=== PATIENT | male | born 1985 | race African-American/Black ===

== ENCOUNTER 2019-07-21 09:29 | Outpatient (CLI) ==
[2019-07-21 09:48] LABS: BASOPHILS # (AUTO) 0.03 x10^3/uL (0-0.1); BASOPHILS % (AUTO) 1 % (0-1); EOSINOPHILS # (AUTO) 0.06 x10^3/uL (0-0.4); EOSINOPHILS % (AUTO) 1 % (1-7); LYMPHOCYTES # (AUTO) 2.32 x10^3/uL (1-3.4); LYMPHOCYTES % (AUTO) 46 % (22-44); MD NO; MEAN CORPUSCULAR HEMOGLOBIN 29.9 pg (27.5-34.5); MEAN CORPUSCULAR HGB CONC 34.2 g/dL (33.2-36.2); MEAN CORPUSCULAR VOLUME 87.4 fL (81-97); MEAN PLATELET VOLUME 9.7 fL (7.4-10.4); MONOCYTES # (AUTO) 0.48 x10^3/uL (0.2-0.8); MONOCYTES % (AUTO) 9 % (2-9); NEUTROPHILS # (AUTO) 2.19 x10^3/uL (1.8-6.8); NEUTROPHILS % (AUTO) 43 % (42-75); PLATELET COUNT 180 x10^3/uL (130-400); RED BLOOD COUNT 5.16 x10^6/uL (4.38-5.82); RED CELL DISTRIBUTION WIDTH 13.2 % (9.4-14.8)
[2019-07-21 09:55] LABS: ALANINE AMINOTRANSFERASE 25 U/L (12-78); ALBUMIN 3.5 g/dL (3.4-5.0); ANION GAP 10 mmol/L (5-15); CALCIUM 8.6 mg/dL (8.5-10.1); CHLORIDE 101 mmol/L (98-107); CHOLESTEROL, TOTAL 242 mg/dL (140-239); CREATININE 1.02 mg/dL (0.7-1.3)
[2019-07-21 10:06] LABS: ALKALINE PHOSPHATASE 135 U/L (45-117); BILIRUBIN,TOTAL 0.9 mg/dL (0.2-1.0); CHOL/HDL RATIO 6.4; HDL CHOL % 16 % (26-37); HDL CHOLESTEROL (DIRECT) 38 mg/dL (40-60); TOTAL PROTEIN 7.7 g/dL (6.4-8.2); TRIGLYCERIDES 825 mg/dL (50-200)
== END 2019-07-21 23:59 | disposition home or self-care (01) ==
LOC: LAB 09:29
PROVIDERS: ATTEND Internal Medicine
DX: E11.9 Type 2 diabetes mellitus without complications (principal)
CPT/HCPCS: 36415; 80053; 80061; 82043; 82570; 83036; 84443; 85025

== ENCOUNTER 2020-07-08 21:49 | Emergency (ER) | payer OTHER ==
[~2020-07-08] VITALS: Ht 177.8 cm; Wt 100.3 kg
[2020-07-08 22:13] VITALS: BP 113/73
--- NOTE | 2020-07-09 00:33 | NUR ---
DR CASTILLO AT FOR PT HISTORY AND ASSESSMENT. PT SWABBED FOR COVID BY DR CASTILLO, AND SAMPLE WALKED TO LAB AT THIS TIME.
--- NOTE | 2020-07-09 00:39 | NUR ---
PT D/C WITH D/C SUMMARY AND SCRIPTS. ALL QUESTIONS ANSWERED. PT AMBULATES TO REGISTRATION DESK WITH STEADY GAIT FOR D/C HOME. PT VERBALIZES UNDERSTANDING OF NEED TO SELF ISOLATE AND SOCIALLY DISTANCE HIMSELF. PT DENIES ANY TOHER NEEDS PERTAINING TO THIS VISIT.
== END 2020-07-09 01:25 ==
LOC: ED 07-09 01:19
DX: U07.1 COVID-19 (principal); J12.9 Viral pneumonia, unspecified; R51.9 Headache, unspecified; R50.9 Fever, unspecified; R05 Cough; M79.10 Myalgia, unspecified site
CPT/HCPCS: 71045; 87635; 99284